=== PATIENT | female | born 1995 ===

== ENCOUNTER 2025-02-19 10:48 | Emergency (ER) | payer OTHER, SELFPAY ==
[2025-02-19 11:17] VITALS: BP 112/55; PULSE 86; RESP 16; TEMP 36.5; O2SAT 98; BMI 45.0
--- NOTE | 2025-02-19 11:20 | ED_ITS ---
HPI - General Adult General Chief complaint: Abdominal Pain Stated complaint: stomach pain Related Data Allergies Allergy/AdvReac Type Severity Reaction Status Date / Time No Known Allergies Allergy Verified 02/19/25 11:19 [facility] Social History Social History Advance Directives: No Advance Directives Information Provided: No Do you have a plan to hurt others: No Plan Physical Exam ED Vital Signs: Vital Signs - 24 hr 02/19/25 11:17 Temperature 97.7 F Pulse Rate 86 Respiratory Rate 16 Blood Pressure 112/55 L Pulse Oximetry 98 Oxygen Delivery Method Room Air BMI result Body Mass Index 45.0 Course Course Course Narrative: Rapid medical examination performed in triage by Angelia Mackenzie PA-C: Patient is a 30 year old assigned female at presenting to the emergency department with abdominal pain and nausea. Detailed physical exam and review of systems are deferred to the rn or lpn. Labs ordered. Patient placed back in the waiting room pending room availability and results. Patient left the department without completing treatment. Patient left the department before myself or any of the other emergency department clinicians could explain to or review with the patient; physical exam findings, test results, need or lack there of for additional testing, need or lack there of for a procedure to be performed, need or lack there of for hospital admission / transfer, need or lack there of for prescription medication, treatment options, or a treatment plan. Patient's limited physical exam performed in triage showed a non-toxic individual with appropriate breathing, alert and oriented, and ambulating without assistance. Medical Decision Making Lab Data 02/19/25 11:34 02/19/25 11:34 Labs: Lab Results 02/19/25 Range/Units 11:34 WBC 9.4 (4.8-10.8) X10*3/uL RBC 4.75 (4.20-5.50) X10*6/uL Hgb 13.4 (12.0-16.0) g/dl Hct 42.1 (37.0-47.0) % MCV 88.6 (80.0-98.0) fL MCH 28.2 (27.0-33.0) pg MCHC 31.8 (31.0-35.0) g/dl RDW 14.3 (11.0-16.0) % Plt Count 314 (160-400) X10*3/uL MPV 10.2 (9.4-12.3) fL Immature Gran % (Auto) 0.3 (0.0-0.4) % Neut % (Auto) 71.6 (45-73) % Lymph % (Auto) 21.1 (20-40) % [place] % (Auto) 5.2 (2-11) % Eos % (Auto) 1.4 (0-4) % Baso % (Auto) 0.4 (0-2) % Lymph # (Auto) 2.0 (1.2-4.9) X10*3/uL [place] # (Auto) 0.5 (0.1-1.2) X10*3/uL Eos # (Auto) 0.1 (0.0-0.4) X10*3/uL Baso # (Auto) 0.0 (0.0-0.2) X10*3/uL Abs Immat Gran (auto) 0.03 (0.00-0.03) X10*3/uL Absolute Neuts (auto) 6.7 (2.0-8.3) x10*3/uL Absolute Nucleated RBC 0.000 (0.0-0.012) X10*3/uL Nucleated RBC % (auto) 0.0 (0.0-0.2) /100WBC Sodium 138 (135-145) mmol/L Potassium 4.2 (3.3-5.1) mmol/L Chloride 109 H (96-108) mmol/L Carbon Dioxide 19 L (22-29) mmol/L Anion Gap 14 (12-20) BUN 8 L (9-16) mg/dL Creatinine 0.84 (0.5-1.4) mg/dL Estim Creat Clear Calc 119.9 Estimated GFR > 60 Random Glucose 134 H (60-115) mg/dL Calcium 9.2 (8.4-10.2) mg/dL Magnesium 1.9 (1.6-2.6) mg/dL Total Bilirubin 0.6 (0.0-1.0) mg/dL AST 44 H (5-31) U/L ALT 49 H (0-31) U/L Alkaline Phosphatase 57 (39-117) U/L Total Protein 7.7 (6.5-8.0) g/dL Albumin 4.3 (3.5-5.0) g/dL Beta HCG, Quant < 2 mIU/mL Influenza Type A (PCR) NEGATIVE (Negative) Influenza Type B (PCR) NEGATIVE (Negative) RSV RNA Qual (PCR) NEGATIVE (Negative) SARS-CoV-2 RNA (RT-PCR) NEGATIVE (Negative) Discharge Plan Discharge Clinical Impression: Abdominal pain Patient Disposition: Left W/O Completing Treatment Discharge Date/Time: 02/19/25 15:46
[2025-02-19 11:39] LABS: MANUAL DIFF FLAG NO
[2025-02-19 11:44] LABS: Hematocrit 42.1 % (37.0-47.0); Hemoglobin 13.4 g/dl (12.0-16.0); Imm Gran Abs Auto 0.03 X10*3/uL (0.00-0.03); Imm Gran Pct Auto 0.3 % (0.0-0.4); Lymphocytes Absolute Auto 2.0 X10*3/uL (1.2-4.9); Mean Corpuscular HGB Conc 31.8 g/dl (31.0-35.0); Mean Corpuscular Hemoglobin 28.2 pg (27.0-33.0); Mean Corpuscular Volume 88.6 fL (80.0-98.0); NRBC Abs Auto 0.000 X10*3/uL (0.0-0.012); NRBC Pct Auto 0.0 /100WBC (0.0-0.2); Platelet Count 314 X10*3/uL (160-400); Red Blood Count 4.75 X10*6/uL (4.20-5.50); White Blood Count 9.4 X10*3/uL (4.8-10.8)
[2025-02-19 12:07] LABS: Alanine Aminotransferase 49 U/L (0-31); Albumin Level 4.3 g/dL (3.5-5.0); Alkaline Phosphatase 57 U/L (39-117); Anion Gap 14 (12-20); Aspartate Amino Transferase 44 U/L (5-31); Blood Urea Nitrogen 8 mg/dL (9-16); Calcium 9.2 mg/dL (8.4-10.2); Carbon Dioxide 19 mmol/L (22-29); Chloride 109 mmol/L (96-108); Creatinine Clr Calc Pharmacy 119.9; Estimated Glomerular Filt Rate > 60; Magnesium 1.9 mg/dL (1.6-2.6); Potassium 4.2 mmol/L (3.3-5.1); Sodium 138 mmol/L (135-145); Total Protein 7.7 g/dL (6.5-8.0)
[2025-02-19 12:23] LABS: Resp Syncy Virus RNA Qual PCR NEGATIVE (Negative); SARS COV2 PCR INHOUSE NEGATIVE (Negative)
--- OUTSIDE RECORDS SUMMARY | 2025-02-19 12:33 | XMS_ITS | Encounter Summary ---
Author Organization [employer] Address [address] [place] [address] Care Team Providers Care Mental Health Associate Name Role Phone Physician, Pcp Unknown Primary Care Provider Trang vailable Reason for Visit * Reason Comments Abdominal Pain Encounter Details Date Type Department Care Team (Late st Contact Info) Description 02/19/2025 12:33 PM EST Emergency [facility] Emergency [address] [place] [id number] Rolly Hobbs MD [address] [place] [address] Social History Tobacco Use Types Packs/Day Years Used Date Smoking Tobacco: Never Smokeless Tobacco: Never Tobacco Cessation:Counseling Given: Not Answered Comments Unknown Sex and Gender Information Value Date Recorded Sex Assigned at Not on file Legal Sex Female 3:31 PM EST Gender Identity Not on file Sexual Orientation Not on file documented as of this encounter Last Filed Vital Signs Vital Sign Reading Time Taken Comments Blood Pressure 125/72 02/19/2025 4:45 PM EST Pulse 100 02/19/2025 4:45 PM EST Temperature 36.7 C (98.1 F) 02/19/2025 4:45 PM EST Respiratory Rate 18 02/19/2025 4:45 PM EST Oxygen Saturation 100% 02/19/2025 4:45 PM EST Inhaled Oxygen Concentration - - Weight 115 kg (254 lb) 02/19/2025 12:53 PM EST Height 157.5 cm (5' 2 ) 02/19/2025 12:53 PM EST Body Mass Index 46.46 02/19/2025 12:53 PM EST documented in this encounter Functional Status * Calculated C-SSRS Risk Score (Lifetime/Recent) Answer Date of Assessment Author No Risk Indicated 02/19/2025 12:53 PM EST Jodee Bae RN * [place] Suicide Severity Rating Scale (Screener/Recent Self-Report) Question Answer Date of Assessment Author 1. Wish to be (Past 1 Month) No 025 12:53 PM EST Jodee Bae RN 2. Non-Specific Active Suici lucy Thoughts (Past 1 Month) No 02/19/2025 12:53 PM EST Curly Bae RN 6. Suicidal Behavior (Lifetime) No 12:53 PM EST Jodee Bae RN documented as of this encounter Progress Notes * Jodee Bae RN - 02/19/2025 12:50 PM EST Patient to ED with mother for sudden mid left sided abdominal pain that radiates into left mid backsince this morning. Reports Hx of pancreatitis. C/o nausea w/o vomiting and loose stools. Pain worse after eating. Denies fevers at home. documented in this encounter Plan of Treatment Scheduled Orders Name Type Priority Associated Diagnoses Orde r Schedule POC , urine manually resulted Point of Care Testing STAT Once for 1 Occurrences starting 02/19/2025 until 02/19/2025 documented as of this encounter Procedures Procedure Name Priority Date/Time Associated Diagnosis Comments CBC WITH AUTO DIFFERENTIAL STAT 02/19/2025 1:31 PM EST CBC AND DIFFERENTIAL STAT 02/19/2025 1:31 PM EST LIPASE STAT 02/19/2025 1:31 PM EST COMPREHENSIVE METABOLIC PANEL STAT 02/19/2025 1:31 PM EST documented in this encounter Results * (ABNORMAL) CBC auto differential (02/19/2025 1:31 PM EST) WBC 13.0(H) 4.8 - 10.8 K/[facility] LAB HEMETOLOGY METHOD 02/19/2025 2:10 PM EST [facility] RBC 4.50 3.80 - 4.80 M/[facility] LAB HEMETOLOGY METHOD 02/19/2025 2:10 PM [facility] Hemoglobin 12.6 11.5 - 16.0 g/dL LAB HEMETOLOGY METHOD 02/19/2025 2:10 PM [facility] Hematocrit 38.6 35.0 - 47.0 % LAB HEMETOLOGY METHOD 02/19/2025 2:10 PM [facility] MCV 86.2 79.0 - 98.0 FL LAB HEMETOLOGY METHOD 02/19/2025 2:10 PM [facility] MCH 28.1 27.0 - 32.0 pcg LAB HEMETOLOGY METHOD 02/19/2025 2:10 PM [facility] MCHC 32.6 32.0 - 37.0 g/dL LAB HEMETOLOGY METHOD 02/19/2025 2:10 PM [facility] RDW 14.1 11.0 - 15.0 % LAB HEMETOLOGY METHOD 02/19/2025 2:10 PM [facility] Platelets 369 130 - 400 K/mcL LAB HEMETOLOGY METHOD 02/19/2025 2:10 PM [facility] MPV 10.5 7.0 - 11.0 FL LAB HEMETOLOGY METHOD 02/19/2025 2:10 PM [facility] NRBC 0.0 <1.0 % LAB HEMETOLOGY METHOD 02/19/2025 2:10 PM [facility] NRBC Absolute 0.00 <0.10 K/mcL LAB HEMETOLOGY METHOD 02/19/2025 2:10 PM [facility] Neutrophils Relative 89.1 % LAB HEMETOLOGY METHOD 02/19/2025 2:10 PM [facility] Lymphocytes Relative 7.1 % LAB HEMETOLOGY METHOD 02/19/2025 2:10 PM [facility] Monocytes Relative 2.9 % LAB HEMETOLOGY METHOD 02/19/2025 2:10 PM EST [facility] Eosinophils Relative 0.2 % LAB HEMETOLOGY METHOD 02/19/2025 2:10 PM [facility] Basophils Relative 0.2 % LAB HEMETOLOGY METHOD 02/19/2025 2:10 PM [facility] Immature Granulocytes Relative 0.5 % LAB HEMETOLOGY METHOD 02/19/2025 2:10 PM EST [facility] Neutrophils Absolute 11.61(H) 1.50 - 7.00 K/mcL LAB HEMETOLOGY METHOD 02/19/2025 2:10 PM EST [facility] Lymphocytes Absolute 0.93(L) 1.00 - 5.00 K/mcL LAB HEMETOLOGY METHOD 02/19/2025 2:10 PM [facility] Monocytes Absolute 0.38 0.20 - 1.00 K/mcL LAB HEMETOLOGY METHOD 02/19/2025 2:10 PM EST [facility] Eosinophils Absolute 0.02 0.00 - 0.50 K/mcL LAB HEMETOLOGY METHOD 02/19/2025 2:10 PM EST [facility] Basophils Absolute 0.03 0.00 - 0.20 K/mcL LAB HEMETOLOGY METHOD 02/19/2025 2:10 PM [facility] Immature Granulocytes Absolute 0.06(H) 0.00 - 0.03 K/mcL LAB HEMETOLOGY METHOD 02/19/2025 2:10 PM [facility] Blood Venous blood specimen / Unknown Venipuncture / Unknown 02/19/2025 1:31 PM EST 02/19/2025 1:54 PM EST us Rolly Hobbs MD LAB BLOOD ORDERABLES Final Resul t [facility] [address] [place] [address], [place] [phone] * Lipase (02/19/2025 1:31 PM EST) Pathologist [facility] Lipase 15 13 - 75 unit/L LAB CHEMISTRY METHOD 02/19/2025 2:25 PM [facility] Blood Venous blood specimen / Unknown Venipuncture / Unknown 02/19/2025 1:31 PM EST 02/19/2025 1:54 PM EST us Rolly Hobbs MD LAB BLOOD ORDERABLES Final Resul t [facility] [address] [place] [address], [place] [phone] * (ABNORMAL) Comprehensive metabolic panel (02/19/2025 1:31 PM EST) [facility] Sodium 137 133 - 145 mmol/L LAB CHEMISTRY METHOD 02/19/2025 2:27 PM [facility] Potassium 4.0 3.5 - 5.5 mmol/L LAB CHEMISTRY METHOD 02/19/2025 2:27 PM [facility] Chloride 106 96 - 110 mmol/L LAB CHEMISTRY METHOD 02/19/2025 2:27 PM [facility] CO2 23 21 - 32 mmol/L LAB CHEMISTRY METHOD 02/19/2025 2:27 PM [facility] Anion Gap 8 3 - 11 LAB CHEMISTRY METHOD 02/19/2025 2:27 PM [facility] Glucose 127(H) 70 - 100 mg/dL LAB CHEMISTRY METHOD 02/19/2025 2:27 PM [facility] BUN 8 5 - 25 mg/dL LAB CHEMISTRY METHOD 02/19/2025 2:27 PM [facility] Creatinine 0.97 0.50 - 1.10 mg/dL LAB CHEMISTRY METHOD 02/19/2025 2:27 PM [facility] eGFR 81 >=60 mL/min/1. 73m2 LAB CHEMISTRY METHOD 02/19/2025 2:27 PM [facility] Comment:Calculation based on the Chronic Kidney Disease Epidemiology Collaboration (CKD-EPI) equation refit without adjustment for race. BUN/Creatinine Ratio 8.2 LAB CHEMISTRY METHOD 02/19/2025 2:27 PM [facility] Calcium 9.1 8.5 - 10.5 mg/dL LAB CHEMISTRY METHOD 02/19/2025 2:27 PM [facility] AST (SGOT) 40 10 - 42 unit/L LAB CHEMISTRY METHOD 02/19/2025 2:27 PM [facility] ALT (SGPT) 59 10 - 60 unit/L LAB CHEMISTRY METHOD 02/19/2025 2:27 PM [facility] Alkaline Phosphatase 59 42 - 121 unit/L LAB CHEMISTRY METHOD 02/19/2025 2:27 PM [facility] Total Protein 7.4 6.0 - 8.0 g/dL LAB CHEMISTRY METHOD 02/19/2025 2:27 PM [facility] Albumin 3.7 3.2 - 5.0 g/dL LAB CHEMISTRY METHOD 02/19/2025 2:27 PM [facility] Total Bilirubin 0.4 0.0 - 1.4 mg/dL LAB CHEMISTRY METHOD 02/19/2025 2:27 PM [facility] Blood Venous blood specimen / Unknown Venipuncture / Unknown 02/19/2025 1:31 PM EST 02/19/2025 1:54 PM EST us Rolly Hobbs MD LAB BLOOD ORDERABLES Final Resul t [facility] [address] [place] [address], documented in this encounter Visit Diagnoses Not on filedocumented in this encounter Orders Diet Count Last Ordered Date First Orde red Date ADULT NPO DIET 1 02/19/2025 documented in this encounter Care Teams Mental Health Associate Relationship Specialty Start Date End Date Physician, Pcp Unknown PCP - General 09/05/24 documented as of this encounter
--- OUTSIDE RECORDS SUMMARY | 2025-02-19 17:05 | XMS_ITS | Clinical Summary ---
Author Organization [address] Address [address] [place] [address] Phone Care Team Providers Care Supervisor Shearing Name Role Phone Physician, Pcp Unknown Primary Care Provider Trang vailable Allergies No known active allergies Encounters Date Type Department Care Team Description 02/19/2025 12:33 PM EST Emergency [facility] Emergency [address] [place] [address] Rolly Hobbs MD from Last 3 Months Medical History Medical History Date Comments Pancreatitis Social History Tobacco Use Types Packs/Day Years Used Date Smoking Tobacco: Never Smokeless Tobacco: Never Tobacco Cessation:Counseling Given: Not Answered Comments Unknown Sex and Gender Information Value Date Recorded Sex Assigned at Not on file Legal Sex Female 3:31 PM EST Gender Identity Not on file Sexual Orientation Not on file Obstetrics History Last Filed Vital Signs Vital Sign Reading [...] Mass Index 46.46 02/19/2025 12:53 PM EST Plan of Treatment Health Maintenance Due Date Last Done Comments Cervical Cancer Screening: Pap Smear 01/28/2016 Depression Screening 04/12/2024 HIV Screening 09/05/2024 Hepatitis C Screening 09/05/2024 Social Influencers of Health Screening 09/05/2024 COVID-19 Vaccine (3 - season) 2024 08/30/2020, 08/09/2020 DTaP,Tdap,and Td Vaccines (7 - Td or Tdap) 06/14/2029 06/15/2019, 02/08/2008, 07/14/1996, Additional history exists Cholesterol Screening (Lipid Panel) 09/05/2029 09/05/2024 RSV Immunization Adult Patients (1 - 1-dose 75+ series) 2070 MMR Vaccines Completed 02/20/1999, 07/14/1996 IPV Vaccines Completed 12/02/1999, 08/1998, 1995, Additional history exists Varicella Vaccines Completed 03/02/2007, 12/02/1999 HPV Vaccines Completed 07/26/2008, 01/11, 05/18/2007 Meningococcal ACWY Vaccine Completed 08/10/2012 Hepatitis A Vaccines Completed 11/24/2016, 11/17/19 13 Hepatitis B Vaccines Completed 05/01/2020, 06/15/2019, 01/26/2017 Influenza Vaccine Completed 02/03/2025, , 03/03/2022, Additional history exists HIB Vaccines Aged Out No longer eligi ble based on patient's age to complete this topic Meningococcal B Vaccine Aged Out No l onger eligible based on patient's age to complete this topic Pneumococcal Vaccine: Pediatrics (0 to 5 Years) and At-Risk Patients (6 to 49 Years) Aged Out No longer eligible based on patient's age to complete this topic RSV Immunization Patients Under 20 months Aged Out No longer eligible based on patient's age to complete this topic Procedures Procedure Name Priority Date/Time Associated Diagnosis Comments CBC WITH AUTO DIFFERENTIAL STAT 02/19/2025 1:31 PM EST LIPASE STAT 02/19/2025 1:31 PM EST COMPREHENSIVE METABOLIC PANEL STAT 02/19/2025 1:31 PM EST CBC AND DIFFERENTIAL STAT 02/19/2025 1:31 PM EST LIPID PANEL WITH REFLEX TO DIRECT LDL Routine 09/05/2024 11:56 AM EDT Fear of open places from Last 3 Months or Most Recently Relevant to Health Maintenance Results * (ABNORMAL) CBC auto differential (02/19/2025 1:31 PM EST) WBC 13.0(H) 4.8 - 10.8 K/mcL LAB HEMETOLOGY METHOD 02/19/2025 2:10 PM EST [facility] RBC 4.50 3.80 - 4.80 M/mcL LAB HEMETOLOGY METHOD 02/19/2025 2:10 PM [facility] Hemoglobin 12.6 11.5 - 16.0 g/dL LAB HEMETOLOGY METHOD 02/19/2025 2:10 PM [facility] Hematocrit 38.6 35.0 - 47.0 % LAB HEMETOLOGY METHOD 02/19/2025 2:10 PM [facility] MCV 86.2 79.0 - 98.0 FL LAB HEMETOLOGY METHOD 02/19/2025 2:10 PM [facility] MCH 28.1 27.0 - 32.0 pcg LAB HEMETOLOGY METHOD 02/19/2025 2:10 PM [facility] MCHC 32.6 32.0 - 37.0 g/dL LAB HEMETOLOGY METHOD 02/19/2025 2:10 PM [facility] RDW 14.1 11.0 - 15.0 % LAB HEMETOLOGY METHOD 02/19/2025 2:10 PM [facility] Platelets 369 130 - 400 K/mcL LAB HEMETOLOGY METHOD 02/19/2025 2:10 PM [facility] MPV 10.5 7.0 - 11.0 FL LAB HEMETOLOGY METHOD 02/19/2025 2:10 PM [facility] NRBC 0.0 <1.0 % LAB HEMETOLOGY METHOD 02/19/2025 2:10 PM [facility] NRBC Absolute 0.00 <0.10 K/mcL LAB HEMETOLOGY METHOD 02/19/2025 2:10 PM [facility] Neutrophils Relative 89.1 % LAB HEMETOLOGY METHOD 02/19/2025 2:10 PM [facility] Lymphocytes Relative 7.1 % LAB HEMETOLOGY METHOD 02/19/2025 2:10 PM [facility] Monocytes Relative 2.9 % LAB HEMETOLOGY METHOD 02/19/2025 2:10 PM [facility] Eosinophils Relative 0.2 % LAB HEMETOLOGY METHOD 02/19/2025 2:10 PM [facility] Basophils Relative 0.2 % LAB HEMETOLOGY METHOD 02/19/2025 2:10 PM [facility] Immature Granulocytes Relative 0.5 % LAB HEMETOLOGY METHOD 02/19/2025 2:10 PM [facility] Neutrophils Absolute 11.61(H) 1.50 - 7.00 K/mcL LAB HEMETOLOGY METHOD 02/19/2025 2:10 PM [facility] Lymphocytes Absolute 0.93(L) 1.00 - 5.00 K/mcL LAB HEMETOLOGY METHOD 02/19/2025 2:10 PM [facility] Monocytes Absolute 0.38 0.20 - 1.00 K/mcL LAB HEMETOLOGY METHOD 02/19/2025 2:10 PM [facility] Eosinophils Absolute 0.02 0.00 - 0.50 K/mcL LAB HEMETOLOGY METHOD 02/19/2025 2:10 PM [facility] Basophils Absolute 0.03 0.00 - 0.20 K/mcL LAB HEMETOLOGY METHOD 02/19/2025 2:10 PM [facility] Immature Granulocytes Absolute 0.06(H) 0.00 - 0.03 K/mcL LAB HEMETOLOGY METHOD 02/19/2025 2:10 PM EST [facility] Blood Venous blood specimen / Unknown Venipuncture / Unknown 02/19/2025 1:31 PM EST 02/19/2025 1:54 PM EST Rolly Hobbs MD LAB BLOOD ORDERABLES Final Resul t Performing Organization Address City/[facility]/ZIP Co de Phone Number [facility] [address] [place] [address], [place] [phone] * Lipase (02/19/2025 1:31 PM EST) Lipase 15 13 - 75 unit/L LAB CHEMISTRY METHOD 02/19/2025 2:25 PM [facility] Blood Venous blood specimen / Unknown Venipuncture / Unknown 02/19/2025 1:31 PM EST 02/19/2025 1:54 PM EST Rolly Hobbs MD LAB BLOOD ORDERABLES Final Resul t Performing Organization Address [facility]/ZIP Co de Phone Number [facility] [address] [place] [address], [place] [phone] * (ABNORMAL) Comprehensive metabolic panel (02/19/2025 1:31 PM EST) Sodium 137 133 - 145 mmol/L LAB CHEMISTRY METHOD 02/19/2025 2:27 PM [facility] Potassium 4.0 3.5 - 5.5 mmol/L LAB CHEMISTRY METHOD 02/19/2025 2:27 PM [facility] Chloride 106 96 - 110 mmol/L LAB CHEMISTRY METHOD 02/19/2025 2:27 PM [facility] CO2 23 21 - 32 mmol/L LAB CHEMISTRY METHOD 02/19/2025 2:27 PM [facility] Anion Gap 8 3 - 11 LAB CHEMISTRY METHOD 02/19/2025 2:27 PM [facility] Glucose 127(H) 70 - 100 mg/dL LAB CHEMISTRY METHOD 02/19/2025 2:27 PM [facility] BUN 8 5 - 25 mg/dL LAB CHEMISTRY METHOD 02/19/2025 2:27 PM [facility] Creatinine 0.97 0.50 - 1.10 mg/dL LAB CHEMISTRY METHOD 02/19/2025 2:27 PM [facility] eGFR 81 >=60 mL/min/1. 73m2 LAB CHEMISTRY METHOD 02/19/2025 2:27 PM [facility] Comment:Calculation based on the Chronic Kidney Disease Epidemiology Collaboration (CKD-EPI) equation refit without adjustment for race. BUN/Creatinine Ratio 8.2 LAB CHEMISTRY METHOD 02/19/2025 2:27 PM [facility] Calcium 9.1 8.5 - 10.5 mg/dL LAB CHEMISTRY METHOD 02/19/2025 2:27 PM [facility] AST (SGOT) 40 10 - 42 unit/L LAB CHEMISTRY METHOD 02/19/2025 2:27 PM [facility] ALT (SGPT) 59 10 - 60 unit/L LAB CHEMISTRY METHOD 02/19/2025 2:27 PM [facility] Alkaline Phosphatase 59 42 - 121 unit/L LAB CHEMISTRY METHOD 02/19/2025 2:27 PM [facility] Total Protein 7.4 6.0 - 8.0 g/dL LAB CHEMISTRY METHOD 02/19/2025 2:27 PM [facility] Albumin 3.7 3.2 - 5.0 g/dL LAB CHEMISTRY METHOD 02/19/2025 2:27 PM [facility] Total Bilirubin 0.4 0.0 - 1.4 mg/dL LAB CHEMISTRY METHOD 02/19/2025 2:27 PM [facility] Blood Venous blood specimen / Unknown Venipuncture / Unknown 02/19/2025 1:31 PM EST 02/19/2025 1:54 PM EST Rolly Hobbs MD LAB BLOOD ORDERABLES Final Resul t [facility] [address] [place] [address], [place] [phone] * Lipid panel with reflex to direct LDL (09/05/2024 11:56 AM EDT) Cholesterol 145 0 - 200 mg/dL LAB CHEMISTRY METHOD 09/05/2024 3:11 PM EDT [facility] Triglycerides 117 0 - 150 mg/dL LAB CHEMISTRY METHOD 09/05/2024 3:11 PM EDT [facility] HDL 49 >=40 mg/dL LAB CHEMISTRY METHOD 09/05/2024 3:11 PM EDT [facility] LDL Calculated 73 0 - 100 mg/dL LAB CHEMISTRY METHOD 09/05/2024 3:11 PM EDT [facility] VLDL Cholesterol Gary 23.4 mg/dL LAB CHEMISTRY METHOD 09/05/2024 3:11 PM EDT [facility] Non HDL Chol. (LDL+VLDL) 96 <145 mg/dL LAB CHEMISTRY METHOD 09/05/2024 3:11 PM EDT [facility] Chol/HDL Ratio 3.0 0.0 - 4.4 LAB CHEMISTRY METHOD 09/05/2024 3:11 PM EDT [facility] Blood Venous blood specimen / Unknown Venipuncture / Unknown 09/05/2024 11:56 AM EDT 09/05/2024 1:42 PM EDT Lupe Denny NP LAB BLOOD ORDERABLES Final Resul t Performing Organization Address [facility]/ZIP Co de Phone Number [facility] [address] [place] [address], [place] [phone] from Last 3 Months or Most Recently Relevant to Health Maintenance Insurance [facility] MEDICAID ADVANTAGE Care Teams Supervisor Shearing Relationship Specialty Start Date End Date Physician, Pcp Unknown PCP - General 09/05/24
== END 2025-02-19 15:46 | disposition left against medical advice (07) ==
PROVIDERS: Physician Assistant Medical; Emergency Provider Emergency Medicine
DX: R10.9 Unspecified abdominal pain (principal); R11.0 Nausea; Z53.29 Procedure and treatment not carried out because of patient's decision for other reasons; Z03.818 Encounter for observation for suspected exposure to other biological agents ruled out
CPT/HCPCS: 80053; 83735; 84702; 85025; 87637; 99281; 99283